=== PATIENT | female | born 1975 | race Caucasian/White ===

== ENCOUNTER → 2016-11-12 | Outpatient (REF) | payer BC, OTHER | LOC: M LAB REF 13:50 | PROVIDERS: ATTEND Physician Assistant | DX: M79.1 Myalgia (principal); R53.83 Other fatigue ==

== ENCOUNTER → 2018-11-18 | Outpatient (REF) | payer OTHER, BC | LOC: M LAB REF 08:59 | PROVIDERS: ATTEND Nurse Practitioner Family | DX: J02.9 Acute pharyngitis, unspecified (principal) ==

== ENCOUNTER → 2018-12-05 | Outpatient (REF) | payer OTHER ==
[2018-12-05 11:16] LABS: INFLUENZA A AMPLIFICATION POSITIVE (NEGATIVE); INFLUENZA B AMPLIFICATION NEGATIVE (NEGATIVE)
== END ==
LOC: M LAB REF 10:29
PROVIDERS: ATTEND Physician Assistant Medical
DX: R68.89 Other general symptoms and signs (principal)

== ENCOUNTER → 2019-08-20 | Outpatient (REF) | payer OTHER ==
[2019-08-20 22:35] LABS: INFLUENZA A AMPLIFICATION NEGATIVE (NEGATIVE); INFLUENZA B AMPLIFICATION NEGATIVE (NEGATIVE)
== END ==
LOC: M LAB REF 09:20
PROVIDERS: ATTEND Physician Assistant Medical
DX: J11.1 Influenza due to unidentified influenza virus with other respiratory manifestations (principal)

== ENCOUNTER → 2020-04-24 | Outpatient (REF) | payer OTHER ==
[2020-04-24 16:28] LABS: APPEARANCE, URINE HAZY (CLEAR); BACTERIA, URINE AUTO NEGATIVE (NEGATIVE); BILIRUBIN, URINE AUTO NEGATIVE (NEGATIVE); BLOOD, URINE BLOOD 3+ (NEGATIVE); COLOR, URINE YELLOW (YELLOW); GLUCOSE, URINE (UA) AUTO NEGATIVE (NEGATIVE); KETONE, URINE AUTO NEGATIVE (NEGATIVE); LEUKOCYTE ESTERASE, URINE AUTO TRACE (NEGATIVE); MUCUS, URINE SMALL (NEGATIVE); NITRITE, URINE AUTO NEGATIVE (NEGATIVE); PROTEIN, URINE AUTO NEGATIVE (NEGATIVE); RBC, URINE AUTO TNTC /HPF (0-3); SPECIFIC GRAVITY URINE AUTO 1.018 (1.002-1.035); SQUAMOUS EPITHELIAL CELL UR AU 7 /HPF (0-6); UROBILINOGEN, URINE AUTO 0.2 mg/dL (0.0-2.0); WBC, URINE AUTO 6 /HPF (0-3)
== END ==
LOC: M LAB REF 15:42
PROVIDERS: ATTEND Physician Assistant
DX: N39.0 Urinary tract infection, site not specified (principal)

== ENCOUNTER → 2021-07-19 | Outpatient (REF) | payer OTHER | LOC: M LAB REF 16:33 | PROVIDERS: ATTEND Registered Nurse | DX: Z01.84 Encounter for antibody response examination (principal) ==

== ENCOUNTER 2022-04-12 16:49 | Emergency (ER) | payer BC, OTHER ==
[~2022-04-12] VITALS: Ht 160 cm; Wt 83.3 kg
[2022-04-12 17:23] LABS: BASO % 0.3 % (0.0-1.0); EOS # 0.1 10^3/uL (0.0-0.5); EOS % 0.9 % (0.0-3.0); HEMATOCRIT 42.4 % (36.0-47.0); HEMOGLOBIN 14.5 g/dl (12.0-15.5); LYMPH # 1.7 10^3/uL (1.5-5.0); LYMPH % 15.2 % (24.0-44.0); MEAN CORPUSCULAR HEMOGLOBIN 29.7 pg (27.0-33.0); MEAN CORPUSCULAR HGB CONC 34.2 g/dl (32.0-36.5); MEAN CORPUSCULAR VOLUME 86.7 fl (80.0-96.0); MONO # 0.5 10^3/uL (0.0-0.8); MONO % 4.1 % (2.0-8.0); NEUTROPHILS # 8.7 10^3/uL (1.5-8.5); NEUTROPHILS % 79.1 % (36.0-66.0); PLATELET COUNT, AUTOMATED 318 10^3/uL (150-450); RED BLOOD COUNT 4.89 10^6/uL (4.00-5.40)
[2022-04-12] MEDS ORDERED: POTA1TAB14 (17:23)
[2022-04-12] MEDS ORDERED: HYDR-3490 (17:23)
[2022-04-12] MEDS ORDERED: PROP120C (17:23)
[2022-04-12] MEDS ORDERED: AMLO1TAB25 (17:23)
[2022-04-12] MEDS ORDERED: MONT10TA97 (17:23)
[2022-04-12 17:34] LABS: INR 0.9; PROTHROMBIN TIME 12.5 SECONDS (12.7-14.5)
[2022-04-12 17:53] LABS: ALBUMIN 4.1 GM/DL (3.2-5.2); BILIRUBIN,DIRECT 0.2 MG/DL (0.0-0.2); BILIRUBIN,TOTAL 0.4 MG/DL (0.2-1.0); CK-MB VALUE MASS < 1.0 NG/ML (<3.6); CPK CREATINE PHOSPHOKINASE 111 U/L (26-192); TOTAL PROTEIN 7.8 GM/DL (6.4-8.2)
[2022-04-12 19:16] VITALS: BP 126/66
== END 2022-04-12 19:20 | disposition home or self-care (01) ==
LOC: M ED 16:49
DX: R53.81 Other malaise (principal); R51.9 Headache, unspecified; I10 Essential (primary) hypertension; Z88.1 Allergy status to other antibiotic agents; Z88.6 Allergy status to analgesic agent; Z88.8 Allergy status to other drugs, medicaments and biological substances; Z79.899 Other long term (current) drug therapy

== ENCOUNTER 2023-01-03 20:33 | Emergency (ER) | payer BC, OTHER ==
[~2023-01-03] VITALS: Ht 162.6 cm; Wt 81.8 kg
[~2023-01-03 20:33] MED LIST: AMLO1TAB25; HYDR-3490; MONT10TA97; POTA1TAB14; PROP120C
[2023-01-03] MEDS ORDERED: FAMOTIDINE 20MG/2ML VIAL IVP ONE (20:45)
[2023-01-03] MEDS ORDERED: IPRATROPIUM 0.5MG/ALBUTEROL 2.5MG INH SOL UD 3ML (DUONEB) NEB ONE (20:45)
[2023-01-03] MEDS ORDERED: methylPREDNISolone 125MG 2ML VIAL IV ONE (20:45)
[2023-01-03] MEDS ORDERED: diphenhydrAMINE 50MG/ML VIAL IV ONE (20:45)
[2023-01-03 21:24] LABS: BASO % 0.5 % (0.0-1.0); EOS # 0.1 10^3/uL (0.0-0.5); EOS % 1.6 % (0.0-3.0); HEMATOCRIT 43.3 % (36.0-47.0); HEMOGLOBIN 14.6 g/dl (12.0-15.5); LYMPH # 3.5 10^3/uL (1.5-5.0); LYMPH % 40.1 % (24.0-44.0); MEAN CORPUSCULAR HEMOGLOBIN 29.7 pg (27.0-33.0); MEAN CORPUSCULAR HGB CONC 33.7 g/dl (32.0-36.5); MEAN CORPUSCULAR VOLUME 88.2 fl (80.0-96.0); MONO # 0.7 10^3/uL (0.0-0.8); NEUTROPHILS # 4.3 10^3/uL (1.5-8.5); NEUTROPHILS % 49.5 % (36.0-66.0); PLATELET COUNT, AUTOMATED 336 10^3/uL (150-450); RED BLOOD COUNT 4.91 10^6/uL (4.00-5.40); WHITE BLOOD COUNT 8.7 10^3/uL (4.0-10.0)
[2023-01-03 21:28] LABS: BLOOD UREA NITROGEN 15 MG/DL (9-23); CARBON DIOXIDE LEVEL 23 MMOL/L (20-31); CHLORIDE LEVEL 105 MMOL/L (98-107); CREATININE FOR GFR 0.83 MG/DL (0.55-1.30); GLOMERULAR FILTRATION RATE > 60.0 (>58); GLUCOSE, FASTING 142 MG/DL (60-100); SODIUM LEVEL 139 MMOL/L (136-145)
[2023-01-03 23:31] VITALS: BP 130/80
== END 2023-01-04 00:04 | disposition home or self-care (01) ==
LOC: M ED 20:33
DX: T78.40XA Allergy, unspecified, initial encounter (principal); R21 Rash and other nonspecific skin eruption; I10 Essential (primary) hypertension; Z79.899 Other long term (current) drug therapy; Z88.8 Allergy status to other drugs, medicaments and biological substances; Z88.1 Allergy status to other antibiotic agents; Z88.0 Allergy status to penicillin
CPT/HCPCS: 80048; 85025; 93041; 94640; 94760; 96374; 96375; 99285; J1200; J2930; S0028

== ENCOUNTER → 2024-12-11 | Outpatient (REF) | payer OTHER, BC ==
[~2024-12-11] MED LIST changes: +POTA-298; -POTA1TAB14
== END ==
LOC: M LAB REF 12:50
PROVIDERS: ATTEND Physician Assistant
DX: B34.9 Viral infection, unspecified (principal)

== ENCOUNTER → 2025-05-16 | Outpatient (CLI) | payer BC ==
[2025-05-16 14:11] LABS: LUTEINIZING HORMONE 37.8 mIU/ML
== END ==
LOC: M PLALAB 10:45
PROVIDERS: ATTEND Specialist
DX: N92.6 Irregular menstruation, unspecified (principal); Z80.49 Family history of malignant neoplasm of other genital organs

== ENCOUNTER → 2025-07-23 | Outpatient (REF) | payer OTHER | LOC: M LAB REF 12:49 | PROVIDERS: ATTEND Physician Assistant | DX: B34.9 Viral infection, unspecified (principal) ==